=== PATIENT | female | born 1990 | race Caucasian/White ===

== ENCOUNTER 2016-10-31 17:55 | Emergency (ER) | payer OTHER ==
[2016-10-31 18:26] VITALS: RESP 18; TEMP 97.4
[2016-10-31] MEDS ORDERED: CYCLOBENZAPRINE 10 MG TAB PO ONE (18:46)
[2016-10-31] MEDS ORDERED: KETOROLAC TROMETHAMINE 30 MG/ML SOL IM ONE (18:46)
[2016-10-31] MEDS ORDERED: KETOROLAC TROMETHAMINE 30 MG/ML SOL ONE (18:50)
[2016-10-31] MEDS ORDERED: CYCLOBENZAPRINE 10 MG TAB ONE (18:51)
[2016-10-31 18:56] LABS: APPEARANCE,URINE Slightly Cloudy; BILIRUBIN,URINE 1+ (NEGATIVE); COLOR,URINE Dark yellow; GLUCOSE, URINE (UA) NEGATIVE (NEGATIVE); KETONES,URINE 2+ (NEGATIVE); LEUKOCYTE ESTERASE ,URINE NEGATIVE (NEGATIVE); NITRATE,URINE NEGATIVE (NEGATIVE); OCCULT BLOOD,URINE NEGATIVE (NEG-TRACE)
[2016-10-31 19:08] LABS: ICTOTEST,URINE NEGATIVE (NEGATIVE); RBC,URINE 0-2 (0-3AV/HPF); WBC,URINE 0-3 (0-5AV/HPF)
[2016-10-31 21:00] VITALS: BP 108/76; PULSE 74; O2SAT 100
== END 2016-10-31 19:55 | disposition home or self-care (01) | DRG 563 ==
LOC: ED 17:55
DX: S39.012A Strain of muscle, fascia and tendon of lower back, initial encounter (principal)
CPT/HCPCS: 72120; 81001; 99283; J1885